=== PATIENT | female | born 1995 | race Caucasian/White ===

== ENCOUNTER 2018-12-06 23:08 | Outpatient (CLI) | payer MEDICAID, OTHER ==
[~2018-12-06] VITALS: Ht 160 cm; Wt 130.5 kg
[2018-12-06 23:21] VITALS: BP 136/81; PULSE 87; RESP 19; Ht 160 cm; Wt 130.5 kg
[2018-12-06] MEDS ORDERED: PREN-93 PO (23:46)
--- NOTE | 2018-12-07 00:41 | PN ---
Triage Information Date/Time Reason for visit: Shortness of breath and chest pain Weeks of Gestation Patient is a 23-year-old 2 para 0 at 36 weeks and 2 days of gestation w ith estimated date of delivery January 01, 2019 Patient presents with chief complaint of shortness of breath and chest pain O2 sat 98% in room air She reports positive movement, denies vaginal bleeding or leaking fluid She has occasional uterine contractions /Para 2 para 0 Diabetes: none Hypertention: none Objective Heart Rate: 140's Heart Rate Comments heart rate tracing category 1 Contractions: >10 Minutes Apart Exam Cervix fingertip/thick /high per nurse Results/Medications Imaging Results PROCEDURE: ULTRASOUND BIOPHYSICAL PROFILE CLINICAL INDICATION: 23-year-old female with decreased movement for viability. TECHNIQUE: Multiple sonographic images were obtained in order to perform a biophysical profile The images were reviewed on a PACS workstation. COMPARISON: Ultrasound biophysical profile October 03, 2018. FINDINGS: There is a single viable intrauterine gestation. There is a vertex presentation. Cardiac activity is present at 132 beats per minute. The placenta is fundal grade II. The results of the biophysical profile are as follows: breathing movement = 2/2 Gross body movement = 2/2 tone = 2/2 Qualitative amniotic fluid volume = 2/2 Amniotic fluid index equals 9.9 cm. The maximal vertical pocket is 4.8 cm. This yields a biophysical profile score of 8/8. IMPRESSION: Biophysical profile score is 8/8. .Dave Wharton MD, MD Date Time Electronically viewed and signed by .Dave Wharton MD, on 12/07/2018 01:15 .M/ CC: LYNDON MCKEON [phone] Disposition: Patient to go back to the emergency department for the evaluation of shortness of breath and chest pain Assessment/Plan Patient was cleared from obstetrical standpoint and sent back down to the emergency department for evaluation of her shortness of breath and chest pain TRENT TOVAR MD Dec 07, 2018 00:41
--- NOTE | 2018-12-07 02:09 | TRIAGE ---
OB Triage Datetime Report Generated by CPN: 12/07/2018 02:08 Datetime: 12/07/2018 01:05 Pain Assessment Pain Scale: 8 Pain Presence: Intermittent Pain Type: Sharp; Ache Pain Location: Sternum Pain Relief Measures: Comfort Measures Pain Assessment Comments: PT DENIES ANY MORE CRAMPING PAIN IN THE ABDOMEN BUT STILL STATES SHE HAS CHEST PAIN AND SOB Datetime: 12/07/2018 01:00 Labor Evaluation Frequency: irregular Monitor Mode: External Duration (sec)2399: 40-60 Quality: Mild Resting Tone [place]: Relaxed Contraction Comments: some uterine irritability noted Heart Rate FHR Baseline Rate: 135 Monitor Mode: External US Variability: Moderate 6-25 bpm Accelerations: 15X15 Decelerations: None Category: Category I Pain Assessment Pain Scale: 8 Pain Presence: Intermittent Pain Type: Sharp; Ache Pain Location: Sternum Pain Relief Measures: Comfort Measures Pain Assessment Comments: pt denies feeling abdominal cramping anymore but states she still has ania st pain/pressure with SOB Datetime: 12/07/2018 00:35 Vaginal Exam Dilatation (cms): 0.5 Station: -4 Exam By: GRISELDA CARRILLO Membrane Status: Intact Vaginal Bleeding: None Cervix, Consistency: Moderate Cervix, Position: Midposition Presentation 'A': Unable to Assess Datetime: 12/07/2018 00:02 Time of Arrival: 12/06/2018 23:02 EGA: 36.2 Arrived By: Wheelchair Arrived From: Home Chief Complaint: CHEST PAIN/PRESSURE WITH SOB _ N/V Movement: Decreased Contractions: Occasional Rupture of Membranes: Denies Vaginal Bleeding: None Vaginal Discharge: Denies Recent Sexual Intercouse: Denies Abdominal Trauma: Not Applicable Patient Complaints: Cramping; Nausea; Shortness of Breath; Other Additional Patient Complaints: CRAMPING SINCE 1200 _ DFM Time Provider Notified: 12/07/2018 00:00 Provider Notified: HADADIAN Initial Plan: EFM, VS BPP w/NATALIE, SVE Datetime: 12/07/2018 00:00 Labor Evaluation Frequency: Occasional Monitor Mode: External Duration (sec)2399: 40-60 Quality: Mild Resting Tone [place]: Relaxed Contraction Comments: some uterine irritability noted Heart Rate FHR Baseline Rate: 135 Monitor Mode: External US Variability: Moderate 6-25 bpm Accelerations: 15X15 Decelerations: None Category: Category I Datetime: 12/06/2018 23:21 Stage of : OB Triage Assessment Type: Triage Maternal Assessment Level of Consciousness: Fully Conscious DTR's/Clonus: DTRs 2+; No Clonus Headache: Denies Blurred Vision: No Respiratory Effort: Unlabored; Regular Rhythm; Equal Expansion Breath Sounds, Left: Clear and Equal Breath Sounds, Right: Clear and Equal Nausea/Vomiting: Present (Annotations: PT STATES SHE HAS SOME NAUSEA SINCE THE CHEST PAIN STARTED) RUQ Epigastric Pain: Denies Lower Extremities Edema: None Degree: None Upper Extremities Edema: None Degree: None Facial Edema: None Temperature Route: Oral Fall Risk Assessment History of Falling: (0) No Secondary Diagnosis: (0) No Ambulatory Aid: (0) Bedrest/Nurse Assist IV Therapy: (0) No Gait: (0) Normal/Bedrest/Immobile Mental Status: (0) Oriented to Own Ability Fall Score: 0 Fall Risk Score Definition: No Risk: No action required Pain Assessment Pain Scale: 8 Pain Presence: Intermittent Pain Type: Cramping; Sharp; Pressure Pain Location: Abdomen; Sternum; Right Chest; Left Chest Pain Relief Measures: Comfort Measures Datetime: 12/06/2018 23:20 Monitor Mode: External US Comments: MONITORS APPLIED, FHT AUDIBLE AT 140BPM Datetime: 12/06/2018 23:13 Stage of : OB Triage Comments: MONITOR ON PT IN LR 5 Datetime: 10/03/2018 17:00 EGA: 27.1 Fall Score: 0 Fall Risk Score Definition: No Risk: No action required
[2018-12-07] MEDS ORDERED: FAMO-96 PO (04:44)
== END 2018-12-07 01:39 | disposition home or self-care (01) ==
LOC: OBT 23:08 → L-D 23:13 → OBT 12-07 01:39
PROVIDERS: ATTEND Obstetrics & Gynecology
DX: O26.893 Other specified pregnancy related conditions, third trimester (principal); R06.02 Shortness of breath; R07.9 Chest pain, unspecified; O62.9 Abnormality of forces of labor, unspecified; Z3A.36 36 weeks gestation of pregnancy
CPT/HCPCS: 76818; Z7500; G0463

== ENCOUNTER 2018-12-07 01:47 | Emergency (ER) | payer OTHER ==
[~2018-12-07] VITALS: Ht 160 cm; Wt 138.0 kg
[~2018-12-07 01:47] MED LIST: PREN-93 PO
[2018-12-07 01:50] VITALS: Ht 160 cm; Wt 138.0 kg
[2018-12-07] MEDS ORDERED: FAMO-96 PO (04:44)
--- NOTE | 2018-12-07 04:46 | ERD ---
ER Documentation Chief Complaint Chief Complaint SOB WITH CHEST WALL PAIN, SORE THROAT HPI 24-year-old female in her 36-week of presents with complaint of burning sensation in the chest as well as the neck. States that just started today when she was lying down. Currently states there is no burning or chest pain. Denies any shortness of breath, cough, wheezing, hemoptysis, leg edema, leg erythema, leg pain. ROS All systems reviewed and are negative except as per history of present illness. Medications Home Meds Active Scripts Famotidine* (Pepcid*) 20 Mg Tablet, 20 MG PO BID for GERD for 10 Days, TAB Prov:SUNNY MCCLAIN 12/07/18 Reported Medications Vit No.124/Iron/FA ( Vitamin Tablet) 1 Each Tablet, 1 EACH PO, TAB 12/06/18 Allergies Allergies: Coded Allergies: No Known Allergies (Verified Allergy, Mild, 12/06/18) PMhx/Soc Medical and Surgical Hx: pt denies Medical Hx, pt denies Surgical Hx History of Surgery: No Anesthesia Reaction: No Hx Neurological Disorder: No Hx Respiratory Disorders: No Hx Cardiac Disorders: No Hx Psychiatric Problems: No Hx Miscellaneous Medical Probl: No Hx Alcohol Use: No Hx Substance Use: No Hx Tobacco Use: No Smoking Status: Never smoker FmHx Family History: No diabetes, No coronary disease, No other Physical Exam Vitals Vital Signs Date Temp Pulse Resp B/P (MAP) Pulse Ox O2 O2 Flow FiO2 Time Delivery Rate 12/07/18 98.3 88 17 124/77 97 01:50 (93) Physical Exam Const: No acute distress Head: Atraumatic Eyes: Normal Conjunctiva ENT: Normal External Ears, Nose and Mouth. Neck: Full range of motion. No meningismus. Resp: Clear to auscultation bilaterally Cardio: Regular rate and rhythm, no murmurs Abd: Soft, non tender, non distended. Normal bowel sounds Skin: No petechiae or rashes Back: No midline or flank tenderness Ext: No cyanosis, or edema Neur: Awake and alert Psych: Normal Mood and Affect Procedures/MDM EKG: Rate/Rhythm: Normal Sinus Rhythm QRS, ST, T-waves: No changes consistent w/ acute ischemia Impression: No evidence of ischemia or arrhythmia Patient was cleared by labor and delivery before coming here. EKG was within normal limits. Patient's presentation is consistent with GERD. Patient placed on Pepcid and told that if it does not resolve her symptoms to to return to ER immediately. I have low suspicition for acute coronary syndrome, pulmonary embolism, aortic dissection, AAA, pneumothorax, esophageal rupture, pericarditis, myocarditis, or pneumonia based on EKG, imaging, labs, patient history and exam. Patient discharged with strict ER precautions. Patient advised to follow up with PMD. All questions answered at discharge. Departure Diagnosis: Primary Impression: GERD (gastroesophageal reflux disease) Esophagitis presence: without esophagitis Qualified Codes: K21.9 - Gastro- esophageal reflux disease without esophagitis Condition: Stable Patient Instructions: What Is GERD?, Lifestyle Changes for Controlling GERD, Gerd (Adult) Referrals: [facility] YOU HAVE RECEIVED A MEDICAL SCREENING EXAM AND THE RESULTS INDICATE THAT YOU DO NOT HAVE A CONDITION THAT REQUIRES URGENT TREATMENT IN THE EMERGENCY DEPARTMENT. FURTHER EVALUATION AND TREATMENT OF YOUR CONDITION CAN WAIT UNTIL YOU ARE SEEN IN YOUR DOCTORS OFFICE WITHIN THE NEXT 1-2 DAYS. IT IS YOUR RESPONSIBILITY TO MAKE AN APPOINTMENT FOR FOLOW-UP CARE. IF YOU HAVE A PRIMARY DOCTOR --you should call your primary doctor and schedule an appointment IF YOU DO NOT HAVE A PRIMARY DOCTOR YOU CAN CALL OUR PHYSICIAN REFERRAL HOTLINE AT IF YOU CAN NOT AFFORD TO SEE A PHYSICIAN YOU CAN CHOSE FROM THE FOLLOWING [facility] CLINICS [facility] [address] [facility]. [facility] [address] [facility] [facility] [address] [facility] [facility] [address] [facility]. [facility] [address] [facility]. [facility]. [address] Additional Instructions: FOLLOW UP WITH YOUR PRIMARY CARE PHYSICIAN TOMORROW.Return to this facility if you are not improving as expected. SUNNY MCCLAIN Dec 07, 2018 04:46
[2018-12-07 05:11] VITALS: BP 116/67; PULSE 93; RESP 18
== END 2018-12-07 05:13 | disposition home or self-care (01) ==
LOC: FTE 01:47
DX: O99.613 Diseases of the digestive system complicating pregnancy, third trimester (principal); K21.9 Gastro-esophageal reflux disease without esophagitis; Z3A.36 36 weeks gestation of pregnancy
CPT/HCPCS: 93005; Z7502

== ENCOUNTER 2018-12-26 10:23 | Outpatient (CLI) | payer OTHER ==
[~2018-12-26] VITALS: Ht 160 cm; Wt 131.4 kg
[~2018-12-26 10:23] MED LIST changes: +FAMO-96 PO
[2018-12-26 10:36] VITALS: BP 110/57; PULSE 80; RESP 20
[2018-12-26 10:37] VITALS: Ht 160 cm; Wt 131.4 kg
--- NOTE | 2018-12-26 13:01 | TRIAGE ---
OB Triage Datetime Report Generated by CPN: 12/26/2018 13:01 Datetime: 12/26/2018 11:37 Labor Evaluation Frequency: OCCASIONAL Monitor Mode: External Duration (sec)2399: 30-50 Quality: Mild Pattern: Normal: <= 5 Contractions in 10 Minutes Resting Tone [place]: Relaxed Contraction Comments: PT DENIES FEELING UCS Heart Rate FHR Baseline Rate: 130 Monitor Mode: External US Variability: Moderate 6-25 bpm Accelerations: 15X15 Decelerations: None Category: Category I Datetime: 12/26/2018 11:00 Comments: REAPPLIED AFTER U/S Datetime: 12/26/2018 10:47 Time of Arrival: 12/26/2018 10:05 EGA: 39.1 Arrived By: Ambulatory Arrived From: Home Chief Complaint: came in with orders from md for bpp/efw/nst Movement: Present Contractions: Denies/Absent Rupture of Membranes: Denies Vaginal Bleeding: None Vaginal Discharge: Denies Recent Sexual Intercouse: Denies Abdominal Trauma: Not Applicable Patient Complaints: None Time Provider Notified: 12/26/2018 11:36 Provider Notified: HADADIAN Initial Plan: nst Datetime: 12/26/2018 10:43 Comments: u/s tech at bedside Datetime: 12/07/2018 00:02 EGA: 36.2 Datetime: 12/06/2018 23:21 Fall Risk Assessment Fall Score: 0 Fall Risk Score Definition: No Risk: No action required Datetime: 10/03/2018 17:00 EGA: 27.1 Fall Risk Assessment Fall Score: 0 Fall Risk Score Definition: No Risk: No action required
--- NOTE | 2018-12-26 14:52 | PN ---
Triage Information Date/Time December 26, 2018 Reason for visit: Patient here today for testing including NST/BPP requested by primary OB Weeks of Gestation 39 weeks and 1 day /Para 2 para 0 Diabetes: none Hypertention: none Additional information 23-year-old G2, P0 with IUP at 39 weeks and 1 day with morbid obesity was sent by her primary OB to triage for testing including NST/BPP. She was planned for induction at 40 weeks. She denies any complication during course. Denies any diabetes or hypertension. She denies any leaking of fluid, vaginal bleeding or decreased movement. Patient has been scheduled for another testing in 3 days. Objective Vital Signs Date Temp Pulse Resp B/P (MAP) Pulse Ox O2 O2 Flow FiO2 Time Delivery Rate 12/26/18 98.1 80 20 110/57 Room Air 10:36 (74) Heart Rate: 130's Heart Rate Comments Category 1 Contractions: None Exam General appearance: Alert and oriented x4 gentleman appears to be in any acute distress. Obese Abdomen: Soft, gravid, fundal height appears to be correlated with gestational age NST: Category 1 BPP: 04/01 NATALIE: 10.63 Results/Medications Imaging Results AMENDMENT: 12/26/2018 2:27:31 PM Aldo Valdes M.d Impression corrected as follows: IMPRESSION: 1. Single live intrauterine gestation measuring 39 weeks 1 day. 2. Estimated weight = 3675 grams (GP = 68.7% based on LMP age). PROCEDURE: US OB. CLINICAL INDICATION: TECHNIQUE: Multiple sonographic images of the pelvis were obtained. The images were reviewed on a PACS workstation. COMPARISON: US PELVIS 12/07/2018; US 10/03/2018 FINDINGS: There is a single live intrauterine gestation. Cardiac activity is present with 152 beats per minute. Cephalic presentation. Measurements were made in order to determine age. The results are as follows: BPD = 9.56 cm 39 weeks 0 days HC = 34.09 cm 39 weeks 0 days AC = 35.21 cm 39 weeks 1 day FL = 7.60 cm 38 weeks 0 days Estimated gestational age of approximately 39 weeks 1 day. The estimated date of delivery is 01/01/2019. Estimated weight = 3675 grams (8 lbs 2 oz). No anatomic abnormalities demonstrated. The placenta is fundal. There is no evidence for an abruption or placenta previa. IMPRESSION: Single live intrauterine gestation measuring 39 weeks 1 day. Estimated weight = 3675 grams. Disposition: Discharge Assessment/Plan IUP at 39 weeks and 1 day morbid obesity testing reassuring Patient denies any complaint No evidence of labor problem Stable for discharge Strict labor precautions kick counts and follow-up with duration 3 days for repeat testing discussed with the patient Patient has been scheduled for induction at 40 weeks as well as NST in 3 days in triage. Patient verbalized understanding. All questions were answered to patient's with satisfaction. Recommend the patient as well contact her OB clinic within 48 hours after discharge from the hospital for any change in the plan of care. CRISTY HOOK MD December 26, 2018 14:51
== END 2018-12-26 13:05 | disposition home or self-care (01) ==
LOC: L-D 10:23 → OBT 10:23
PROVIDERS: ATTEND Obstetrics & Gynecology
DX: O28.9 Unspecified abnormal findings on antenatal screening of mother (principal); O99.213 Obesity complicating pregnancy, third trimester; E66.01 Morbid (severe) obesity due to excess calories; Z3A.39 39 weeks gestation of pregnancy
CPT/HCPCS: 76815; 76818; Z7500; G0463

== ENCOUNTER 2018-12-28 10:51 | Inpatient (IN) | payer OTHER ==
[~2018-12-28] VITALS: Ht 160 cm; Wt 132.8 kg
[~2018-12-28 10:51] MED LIST changes: -FAMO-96 PO
[2018-12-28 11:12] VITALS: BP 116/55; PULSE 81; Ht 160 cm; Wt 132.8 kg
[2018-12-28] MEDS ORDERED: OXYTOCIN 30 UNITS/LR 500 ML IV SCH (14:00)
[2018-12-28] MEDS ORDERED: METHYLERGONOVINE 0.2 MG INJ IM PRN (14:00)
[2018-12-28] MEDS ORDERED: MISOPROSTOL 200 MCG TAB PR PRN (14:00)
[2018-12-28] MEDS ORDERED: OXYTOCIN 30 UNITS/LR 500 ML IV PRN (14:00)
[2018-12-28] MEDS ORDERED: CARBOPROST 250 MCG INJ IM PRN (14:00)
[2018-12-28] MEDS ORDERED: BUTORPHANOL 2 MG INJ IV PRN (14:00)
[2018-12-28] MEDS: LACTATED RINGER'S 1,000 ML IV SCH ×2 (16:36→20:42)
[2018-12-28] MEDS ORDERED: MISOPROSTOL 50 MCG CAPSULE PO PRN (17:30)
--- NOTE | 2018-12-28 19:49 | HP ---
Date/Time of Note Date/Time of Note DATE: 12/28/18 TIME: 19:43 OB - History Hx of Present Free Text/Dictation 23 years old 2 para 0-0-1-0 with single intrauterine at 39 weeks with a TALI of 01/04/2019 referred to triage for further evaluation due to elevated blood pressure. She states good movement. She denies nausea, vomiting, shortness of breath, chest pain, headache, visual changes, vaginal bleeding or LOF. Chief Complaint: Elevated blood pressure Estimated Due Date: January 04, 2019 : 2 Para: 0 Spontaneous : 1 Therapeutic : 0 Care: Good Care Ultrasounds: Normal mid trimester US Obstetrical Complications: None Medical Complications: None Past Family/Social History * Past Medical, Surgical, Family and Obstetric Histories reviewed from chart. Blood Type: A+ Rubella: immune RPR/VDRL: Negative GBS Status: Negative HBsAG: Negative OB Admission Exam Vital Signs Vital Signs Vital Signs Date Temp Pulse Resp B/P (MAP) Pulse Ox O2 O2 Flow FiO2 Time Delivery Rate 12/28/18 98.1 81 116/55 11:12 (75) Physical Exam HEENT: WNL Heart: Rhythm Normal Lungs: Clear Abdomen: WNL Extremities: Normal Reflexes: Normal Cervical Dilatation: Fingertip Effacement: 0% Station: -3 Membranes: Intact Heart Rate: 140's Accelerations: Accelerations Present Decelerations: No Decelerations Varibility: Moderate Contractions on Admission: None Last 72 hours Lab Results CBC & BMP 12/28/18 12:28 Liver Function Test 12/28/18 12:28 Alanine Aminotransferase (ALT/SGPT) 17 Albumin 3.2 L Alkaline Phosphatase 163 H Aspartate Amino Transf (AST/SGOT) 23 Direct Bilirubin 0.00 Total Protein 6.3 OB Assessment/Plan Other plan: 23 years old 2 para 0-0-1-0 with single intrauterine at 39 weeks with gestational hypertension admitted for induction of labor - FHR: No sign of metabolic acidosis- Category I - Continuous EFM, toco - CBC, blood type and screen, CMP, U/A - ultrasound performed, NATALIE 8.1, biophysical profile 8 out of 8. EFW 3675 gram - Cytotec per protocol for induction of labor, then Pitocin if needed - Analgesia options with R/B/A discussed in detail with patient - Epidural per patient request - Please see the orders - A+/Rubella: Immune - GBS: Negative Admission, procedures, expectations, risks and possible complications have been discussed in detail with the patient. Risk of vaginal delivery including but not limited to bleeding, infection, cervical laceration, placental retention, injury to fetus, blood transfusion, blood transfusion related infection, risk of anesthesia, adhesion, cervical laceration, episiotomy/laceration, possible delivery with risk of bleeding, infection, injury to other organs (bowel, bladder, ureter, vessels, nerves), injury to fetus, blood transfusion, blood transfusion related infection, risk of anesthesia, scar and hernia formation, needs for future , removal of uterus or any other indicated surgery discussed with the patient. She expressed understanding and repeats the risks. All of her questions were answered. She signed the informed consent. PHYSICIAN'S VERIFICATION OF INFORMED CONSENT The patient was counseled regarding the procedure, its indications, risks, potential complications and alternatives and any questions were answered. Consent was obtained. PLANNED PROCEDURE/TREATMENT: Vaginal delivery, episiotomy, repair of laceration possible delivery LYNDON MCKEON December 28, 2018 19:49
[2018-12-29] MEDS: LACTATED RINGER'S 1,000 ML IV SCH ×4 (04:49→23:09)
[2018-12-29] MEDS: OXYTOCIN 30 UNITS/LR 500 ML IV SCH (06:23)
[2018-12-30] MEDS: LACTATED RINGER'S 1,000 ML IV SCH ×5 (04:16→22:40)
--- NOTE | 2018-12-30 12:40 | PREAC ---
Date/Time of Note Date/Time of Note DATE: 12/30/18 TIME: 12:39 Anesthesia Eval and Record Evaluation Time Pre-Procedure Interview DATE: 12/30/18 TIME: 12:39 Age 23 Sex female NPO: 8 hrs Preoperative diagnosis Planned procedure labor epidural Past Medical History Past Medical History: Includes GI: Morbid obesity Surgery & Anesthesia Issues No known issue Meds Anticoagulation: No Beta Jewels within 24 hr: No Reason Beta Jewels not given: Pt. not on B-Jewels Reported Medications Vit No.124/Iron/FA ( Vitamin Tablet) 1 Each Tablet, 1 EACH PO, TAB 12/06/18 Discontinued Scripts Famotidine* (Pepcid*) 20 Mg Tablet, 20 MG PO BID for GERD for 10 Days, TAB Prov:SUNNY MCCLAIN 12/07/18 Current Medications Lactated Ringer's 1,000 ml @ 125 mls/hr Q8H IV Last administered on 12/30/18at 11:21; Admin Dose 125 MLS/HR; Start 12/28/18 at 13:40 Butorphanol Tartrate (Stadol) 1 mg Q2H PRN IV .PAIN SCALE 1-5; Start 12/28/18 at 14:00 Butorphanol Tartrate (Stadol) 2 mg Q2H PRN IV .PAIN SCALE 6-10; Start 12/28/18 at 14:00 Lidocaine (Xylocaine 1% (Mpf)) 30 ml ONCE PRN INJ .EPISIOTOMY; Start 12/28/18 at 14:00 Oxytocin/Lactated Ringer's 500 ml @ 500 mls/hr ONCE POST IV ; Start 12/28/18 at 14:00 Oxytocin/Lactated Ringer's 500 ml @ 125 mls/hr POST IV ; Start 12/28/18 at 14:00 Oxytocin/Lactated Ringer's 500 ml @ 0 mls/hr ONCE PRN IV .VAGINAL BLEEDING; Sta rt 12/28/18 at 14:00 Methylergonovine Maleate (Methergine) 0.2 mg ONCE PRN IM .VAGINAL BLEEDING; Start 12/28/18 at 14:00 Carboprost Tromethamine (Hemabate) 250 mcg ONCE PRN IM .VAGINAL BLEEDING; Start 12/28/18 at 14:00 Misoprostol (Cytotec) 1,000 mcg ONCE PRN DC .VAGINAL BLEEDING; Start 12/28/18 at 14:00 Misoprostol (Cytotec 50 Mcg Capsule) 50 mcg Q4H PRN PO CERVICAL RIPENING Last administered on 12/28/18at 17:46; Admin Dose 50 MCG; Start 12/28/18 at 17:30 Oxytocin/Lactated Ringer's 500 ml @ 0 mls/hr FOR INDUCTION IV Last administered on 12/29/18at 06:23; Admin Dose 1 MLS/HR; Start 12/29/18 at 06:30 Meds reviewed: Yes Allergies Coded Allergies: No Known Allergies (Verified Allergy, Mild, 12/26/18) Allergies Reviewed: Yes Labs/Studies Labs Reviewed: Reviewed by anesthesiologist Result Diagram: 12/28/18 1228 12/28/18 1228 test: Positive Pre-procedure Exam Last vitals Vital Signs Date Temp Pulse Resp B/P (MAP) Pulse Ox O2 O2 Flow FiO2 Time Delivery Rate 12/28/18 98.1 81 116/55 11:12 (75) Airway: Adequate mouth opening, Adequate thyromental dist Mallampati: Mallampati II Teeth: Normal Lung: Normal Heart: Normal ASA Physical Status ASA physical status: 2 Emergency: None Planned Anesthetic Neuraxial: Epidural Pre-operative Attestations Prior to commencing anesthesia and surgery, the patient was re-evaluated, there was verification of: *The patient's identity *The results of appropriate recent lab work and preoperative vital signs *The above evaluation not changing prior to induction *Anesthetic plan, risk benefits, alternative and complications discussed with patient/family; questions answered; patient/family understands, accepts and wishes to proceed. ANIVAL HAWLEY December 30, 2018 12:40
[2018-12-30] MEDS ORDERED: NALOXONE (0.4 MG/ML) INJ IV PRN (13:00)
[2018-12-30] MEDS ORDERED: KETOROLAC 30 MG INJ IV PRN (13:00)
[2018-12-30] MEDS ORDERED: DIPHENHYDRAMINE 50 MG INJ IV PRN (13:00)
[2018-12-30] MEDS ORDERED: FENTAnyl 2MCG/ML-ROPIV 0.2% 100 ML BAG EPI SCH (13:00)
[2018-12-30] MEDS ORDERED: HYDROmorphONE 0.5 MG/0.5 ML SYG IV PRN ×2 (13:00)
[2018-12-30] MEDS ORDERED: LIDOCAINE 1.5%/EPI MPF (SDV) 30 ML VIAL ONE (13:17)
--- NOTE | 2018-12-30 15:05 | QN ---
Documentation Comment Late entry note. Patient seen on 12/29/2018 23 years old 2 para 0-0-1-0 with gestational hypertension at 39 weeks and 1 day admitted for induction of labor. She is currently doing well. She states good movement. She denies nausea, vomiting, shortness of breath, chest pain, headache, visual changes, vaginal bleeding or LOF. heart rate is category 1. She has irregular uterine contractions. She received Cytotec x3. Continue current management. LYNDON MCKEON December 30, 2018 15:05
--- NOTE | 2018-12-30 15:09 | PN ---
Date/Time of Note Date/Time of Note DATE: 12/30/18 TIME: 15:05 OB Subjective Subjective Subjective Patient seen and examined. She states good movement. She denies nausea, vomiting, shortness of breath, chest pain, abdominal pain between contractions, headache, visual changes, vaginal bleeding or LOF. OB Objective Objective Objective General: Patient appears well, alert and oriented, NAD, appropriate mood and affect ABD: gravid, soft, non-tender. Back: No CVA tenderness (B/L) LE: Mild edema. No clubbing, cyanosis, edema, thigh or calf tenderness bilaterally FHT: 135 bpm , moderate variability with acceleration, no deceleration-category I Contractions: Hard to track contraction due to body habitus SVE: 3/50/-3/ceph/intact membrane. OB Assessment/Plan Other plan: 23 year-old G 1 with gestational hypertension at 39 weeks and 2 days - FHR: Reassuring. No sign of metabolic acidosis- Category I - Continuous EFM, toco. - She is currently on oxytocin, increase 2 mu/min every 30 min via infusion pump - AROM performed without any complication/ clear. - IUPC and FSE placed. Patient tolerated the procedure well. * LYNDON MCKEON December 30, 2018 15:09
[2018-12-30] MEDS: BUTORPHANOL 2 MG INJ IV PRN (15:50)
--- NOTE | 2018-12-30 19:44 | PAC ---
Date/Time of Note Date/Time of Note DATE: 12/30/18 TIME: 19:44 Post-Anesthesia Notes Post-Anesthesia Note Last documented vital signs Vital Signs Date Temp Pulse Resp B/P (MAP) Pulse Ox O2 O2 Flow FiO2 Time Delivery Rate 12/28/18 98.1 81 116/55 11:12 (75) Activity: WNL Respiratory function: WNL Cardiovascular function: WNL Mental status: Baseline Pain reasonably controlled: Yes Hydration appropriate: Yes Nausea/Vomiting absent: Yes ANIVAL HAWLEY December 30, 2018 19:44
[2018-12-30] MEDS: ONDANSETRON 4 MG INJ IV PRN (21:08)
[2018-12-30] MEDS ORDERED: AMPICILLIN 2 GM/NS (PMX) 100 ML IV ONE (23:30)
[2018-12-31] MEDS: BUTORPHANOL 2 MG INJ IV PRN (01:42)
[2018-12-31] MEDS: AMPICILLIN 1 GM/NS (PMX) 50 ML IV SCH ×5 (03:25→20:12)
[2018-12-31] MEDS: ONDANSETRON 4 MG INJ IV PRN (05:13)
[2018-12-31] MEDS: LACTATED RINGER'S 1,000 ML IV SCH ×2 (06:05→08:30)
--- NOTE | 2018-12-31 07:31 | PREAC ---
Date/Time of Note Date/Time of Note DATE: 12/31/18 TIME: 07:30 Anesthesia Eval and Record Evaluation Time Pre-Procedure Interview DATE: 12/31/18 TIME: 07:30 Age 23 Sex female NPO: 8 hrs Preoperative diagnosis intrauterine Planned procedure labor epidural (previous not working and removed already) Past Medical History Past Medical History: Includes GI: Morbid obesity Surgery & Anesthesia Issues No known issue Meds Anticoagulation: No Beta Jewels within 24 hr: No Reason Beta Jewels not given: Pt. not on B-Jewels Reported Medications Vit No.124/Iron/FA ( Vitamin Tablet) 1 Each Tablet, 1 EACH PO, TAB 12/06/18 Discontinued Scripts Famotidine* (Pepcid*) 20 Mg Tablet, 20 MG PO BID for GERD for 10 Days, TAB Prov:SUNNY MCCLAIN 12/07/18 Current Medications Lactated Ringer's 1,000 ml @ 125 mls/hr Q8H IV Last administered on 12/31/18at 06:05; Admin Dose 125 MLS/HR; Start 12/28/18 at 13:40 Butorphanol Tartrate (Stadol) 1 mg Q2H PRN IV .PAIN SCALE 1-5; Start 12/28/18 at 14:00 Butorphanol Tartrate (Stadol) 2 mg Q2H PRN IV .PAIN SCALE 6-10 Last administer ed on 12/31/18at 01:42; Admin Dose 2 MG; Start 12/28/18 at 14:00 Lidocaine (Xylocaine 1% (Mpf)) 30 ml ONCE PRN INJ .EPISIOTOMY; Start 12/28/18 at 14:00 Oxytocin/Lactated Ringer's 500 ml @ 500 mls/hr ONCE POST IV ; Start 12/28/18 at 14:00 Oxytocin/Lactated Ringer's 500 ml @ 125 mls/hr POST IV ; Start 12/28/18 at 14:00 Oxytocin/Lactated Ringer's 500 ml @ 0 mls/hr ONCE PRN IV .VAGINAL BLEEDING; Start 12/28/18 at 14:00 Methylergonovine Maleate (Methergine) 0.2 mg ONCE PRN IM .VAGINAL BLEEDING; Start 12/28/18 at 14:00 Carboprost Tromethamine (Hemabate) 250 mcg ONCE PRN IM .VAGINAL BLEEDING; Start 12/28/18 at 14:00 Misoprostol (Cytotec) 1,000 mcg ONCE PRN ID .VAGINAL BLEEDING; Start 12/28/18 at 14:00 Misoprostol (Cytotec 50 Mcg Capsule) 50 mcg Q4H PRN PO CERVICAL RIPENING Last administered on 12/28/18at 17:46; Admin Dose 50 MCG; Start 12/28/18 at 17:30 Oxytocin/Lactated Ringer's 500 ml @ 0 mls/hr FOR INDUCTION IV Last administered on 12/29/18at 06:23; Admin Dose 1 MLS/HR; Start 12/29/18 at 06:30 Naloxone HCl (Narcan) 0.1 mg Q2M PRN IV .RESP RATE; Start 12/30/18 at 13:00; Stop 12/31/18 at 12:59 Ketorolac Tromethamine (Toradol) 30 mg Q6H PRN IV PAIN AFTER CSECTION; Start 12/30/18 at 13:00; Stop 12/31/18 at 12:59 Hydromorphone HCl (Dilaudid) 0.2 mg Q3H PRN IV .PAIN 1-5; Start 12/30/18 at 13:00; Stop 12/31/18 at 12:59 Hydromorphone HCl (Dilaudid) 0.4 mg Q3H PRN IV .PAIN 6-10; Start 12/30/18 at 13:00; Stop 12/31/18 at 12:59 Diphenhydramine HCl (Benadryl) 25 mg Q6H PRN IV .ITCHING; Start 12/30/18 at 13:00; Stop 12/31/18 at 12:59 Ondansetron HCl (Zofran Inj) 4 mg Q6H PRN IV .NAUSEA/VOMITING Last administered on 12/31/18at 05:13; Admin Dose 4 MG; Start 12/30/18 at 13:00; Stop 12/31/18 at 12: 59 Fentanyl/ Ropivacaine 100 ml EPIDURAL INFUSION EPI ; Start 12/30/18 at 13:00 Ampicillin 50 ml @ 100 mls/hr Q4H IV Last administered on 12/31/18at 03:25; Admin Dose 100 MLS/HR; Start 12/31/18 at 03:30 Meds reviewed: Yes Allergies Coded Allergies: No Known Allergies (Verified Allergy, Mild, 5/4/19) Allergies Reviewed: Yes Labs/Studies Labs Reviewed: Reviewed by anesthesiologist Result Diagram: 12/28/18 1228 12/28/18 1228 test: N/A Pre-procedure Exam Last vitals Vital Signs Date Temp Pulse Resp B/P (MAP) Pulse Ox O2 O2 Flow FiO2 Time Delivery Rate 12/28/18 98.1 81 116/55 11:12 (75) Airway: Adequate mouth opening, Adequate thyromental dist Mallampati: Mallampati II Teeth: Normal Lung: Normal Heart: Normal ASA Physical Status ASA physical status: 3 Emergency: None Planned Anesthetic Neuraxial: Epidural Planned Pain Management Epidural Pre-operative Attestations Prior to commencing anesthesia and surgery, the patient was re-evaluated, there was verification of: *The patient's identity *The results of appropriate recent lab work and preoperative vital signs *The above evaluation not changing prior to induction *Anesthetic plan, risk benefits, alternative and complications discussed with patient/family; questions answered; patient/family understands, accepts and wishes to proceed. RADHA CHAUDHARY MD December 31, 2018 07:31
[2018-12-31] MEDS ORDERED: NALOXONE (0.4 MG/ML) INJ IV PRN (08:00)
[2018-12-31] MEDS ORDERED: DIPHENHYDRAMINE 50 MG INJ IV PRN (08:00)
[2018-12-31] MEDS ORDERED: ONDANSETRON 4 MG INJ IV PRN (08:00)
[2018-12-31] MEDS ORDERED: ROPIVACAINE 0.2% 100ML BAG EPI SCH (08:00)
--- NOTE | 2018-12-31 08:32 | PAC ---
Date/Time of Note Date/Time of Note DATE: 12/31/18 TIME: 08:31 Post-Anesthesia Notes Post-Anesthesia Note Last documented vital signs Vital Signs Date Temp Pulse Resp B/P (MAP) Pulse Ox O2 O2 Flow FiO2 Time Delivery Rate 12/28/18 98.1 81 116/55 11:12 (75) Activity: WNL Respiratory function: WNL Cardiovascular function: WNL Mental status: Baseline Pain reasonably controlled: Yes Hydration appropriate: Yes Nausea/Vomiting absent: Yes Comments BP: 132/72 HR: 99 RR: 15 T: 98 SaO2: 96% RADHA CHAUDHARY MD December 31, 2018 08:32
[2018-12-31] MEDS ORDERED: DEXTROSE 5%-LR 1,000 ML IV SCH (09:22)
[2018-12-31] MEDS: OXYTOCIN 30 UNITS/LR 500 ML IV SCH (10:06)
[2018-12-31] MEDS ORDERED: LACTATED RINGER'S 1,000 ML IV SCH (13:13)
[2018-12-31] MEDS: FENTAnyl 2MCG/ML-ROPIV 0.2% 100 ML BAG EPI SCH ×2 (15:14→20:13)
[2019-01-01] MEDS: AMPICILLIN 1 GM/NS (PMX) 50 ML IV SCH (00:06)
[2019-01-01] MEDS ORDERED: MINERAL OIL LIGHT 10 ML VIAL TOP ONE (00:30)
[2019-01-01] MEDS: FENTAnyl 2MCG/ML-ROPIV 0.2% 100 ML BAG EPI SCH (01:59)
[2019-01-01] MEDS: LIDOCAINE 1% (MPF) 30 ML INJ INJ PRN ×2 (03:12→03:18)
[2019-01-01] MEDS: OXYTOCIN 30 UNITS/LR 500 ML IV SCH ×2 (03:18→05:00)
--- NOTE | 2019-01-01 03:56 | LDN ---
Date/Time of Note Date/Time of Note DATE: 01/01/19 TIME: 03:52 Delivery Summary of normal female Weeks of Gestation 39w6d Placenta Delivered: Spontaneously, Intact & Complete Meconium: Thick (old mec membrane is all stained with mec) Episiotomy: Yes Indication for episiotomy expected big laceration Perineal laceration: 0 Laceration repair: 00ch gut Anesthesia type: Epidural Estimated blood loss: 400 Sponge & Needle done & correct: Yes All needle counts correct: Yes Any foreign bodies felt in the: No Delivery Information Sex Infant Sex: female Apgars 1 Minute: 8 5 Minute: 9 10 Minute: 0 Suctioning Nose & mouth suctioned at naomi: Yes Delee suction performed: Yes Umbilical Cord Umbilical cord with: 3 Vessels Cord presentations: no nuchal cord Cord Blood was obtained: Yes Mother & Baby Disposition Disposition Mom & Baby to Maternity; Good: Yes Mom transferred to: Other Baby to NICU: No () HERMINIO MALLOY MD January 01, 2019 03:56
[2019-01-01] MEDS ORDERED: ZOLPIDEM 5 MG TAB PO PRN (05:00)
[2019-01-01] MEDS ORDERED: LANOLIN HPA 1 PKT TOP PRN (05:00)
[2019-01-01] MEDS ORDERED: BENZOCAINE 20% 56 ML SPRAY TOP PRN (05:00)
[2019-01-01] MEDS ORDERED: METHYLERGONOVINE 0.2 MG INJ IM PRN (05:00)
[2019-01-01] MEDS ORDERED: CARBOPROST 250 MCG INJ IM PRN (05:00)
[2019-01-01] MEDS ORDERED: OXYTOCIN 30 UNITS/LR 500 ML IV PRN (05:00)
[2019-01-01] MEDS ORDERED: WITCH HAZEL/GLYCERIN PAD PR PRN (05:00)
[2019-01-01] MEDS ORDERED: OXYCODONE/ASPIRIN (4.88/325) TAB PO PRN ×2 (05:00)
[2019-01-01] MEDS ORDERED: MISOPROSTOL 200 MCG TAB PR PRN (05:00)
[2019-01-01 05:15] VITALS: BP 147/82; PULSE 71; PULSE 90; RESP 18
[2019-01-01] MEDS: IBUPROFEN 600 MG TAB PO SCH ×3 (06:08→18:06)
[2019-01-01 06:15] VITALS: BP 135/77; PULSE 87; RESP 18
[2019-01-01 07:40] VITALS: BP 124/73; PULSE 77; RESP 18
[2019-01-01] MEDS: SENNA/DOCUSATE NA (8.6MG/50MG) TAB PO SCH ×2 (09:07→20:40)
[2019-01-01 12:05] VITALS: BP 120/68; PULSE 84; RESP 18
[2019-01-01 16:00] VITALS: BP 122/65; PULSE 79; RESP 20
[2019-01-01 20:00] VITALS: BP 118/59; PULSE 78; RESP 19
[2019-01-02] MEDS: IBUPROFEN 600 MG TAB PO SCH ×5 (00:06→23:35)
[2019-01-02 03:10] VITALS: BP 114/54; PULSE 69; RESP 20
[2019-01-02 08:15] VITALS: BP 122/57; PULSE 68; RESP 18
[2019-01-02] MEDS: SENNA/DOCUSATE NA (8.6MG/50MG) TAB PO SCH ×2 (08:52→20:50)
[2019-01-02 16:00] VITALS: BP 137/61; PULSE 69; RESP 22
[2019-01-02 19:50] VITALS: BP 105/53; PULSE 82; RESP 17
[2019-01-03 03:10] VITALS: BP 121/71; PULSE 63; RESP 20
[2019-01-03] MEDS: IBUPROFEN 600 MG TAB PO SCH ×2 (05:30→12:00)
[2019-01-03 07:30] VITALS: BP 126/73; PULSE 82; RESP 18
[2019-01-03] MEDS: SENNA/DOCUSATE NA (8.6MG/50MG) TAB PO SCH (09:00)
[2019-01-03] MEDS ORDERED: DIPHTH/TET/ACEL PERTUSS (ADULT) 0.5 ML VIAL IM* ONE (09:00)
--- NOTE | 2019-01-03 10:35 | PN ---
Date/Time of Note Date/Time of Note DATE: 01/03/19 TIME: 10:33 OB Subjective Subjective Subjective PPD# 2 Patient is doing well. She denies nausea, vomiting, shortness of breath, chest pain, headache. She has been ambulating without difficulty, tolerating regular diet. Pain is well controlled on current medications OB Objective Objective Objective Vital Signs Date Temp Pulse Resp B/P (MAP) Pulse Ox O2 O2 Flow FiO2 Time Delivery Rate 01/03/19 97.9 82 18 126/73 Room Air 07:30 (90) General: AAO X 3, comfortable, NAD, appropriate mood and affect. ABD: +BS. Soft, non-tender. Uterus 2 cm below umbilicus Flank: No CVA tenderness (B/L) LE: Mild edema. No clubbing, cyanosis, thigh or calf tenderness (B/L). Homans 'sign is negative OB Assessment/Plan Other plan: 23 years old 2 para 1-0-1-1 s/p normal vaginal delivery at 39 weeks and 3 days. PPD#2 - AF, VSS - Baby is doing well, at bed side. She is bonding well - Contraception methods with R/B/A/FR discussed - Continue care - Discharge home - Rx and instruction given - Follow up in 2 and 6 weeks at clinic LYNDON MCKEON January 03, 2019 10:35
--- NOTE | 2019-01-03 10:36 | DS ---
Date/Time of Note Date/Time of Note DATE: 01/03/19 TIME: 10:35 Obstetrical Discharge Record Final Diagnosis Final Diagnosis: Term delivered Other Final Diagnosis 23 years old 2 para 1-0-1-1 s/p normal vaginal delivery at 39 weeks and 3 days. PPD#2 - AF, VSS - Baby is doing well, at bed side. She is bonding well - Contraception methods with R/B/A/FR discussed - Continue care - Discharge home - Rx and instruction given - Follow up in 2 and 6 weeks at clinic Condition on Discharge Physical Assessment Voiding: Yes Bowel Movement: Yes Breast: Soft, non-tender Fundus: Firm Calf Tenderness: No Patient Condition: Stable LYNDON MCKEON January 03, 2019 10:36
--- NOTE | 2019-01-03 13:09 | QN ---
Documentation Comment Late entry note for 01/02/2019 day #1 Status post Patient stable and afebrile Vital signs stable VS - Last 72 Hours, by Label Date Temp Pulse Resp B/P (MAP) Pulse Ox O2 O2 Flow FiO2 Time Delivery Rate 01/03/19 97.9 82 18 126/73 Room Air 07:30 (90) 01/03/19 97.9 63 20 121/71 Room Air 03:10 (88) 01/02/19 97.8 82 17 105/53 Room Air 19:50 (70) 01/02/19 97.9 69 22 137/61 Room Air 16:00 (86) 01/02/19 97.6 68 18 122/57 Room Air 08:15 (78) 01/02/19 97.5 69 20 114/54 Room Air 03:10 (74) 01/01/19 97.8 78 19 118/59 Room Air 20:00 (78) 01/01/19 97.8 79 20 122/65 Room Air 16:00 (84) 01/01/19 97.9 84 18 120/68 Room Air 12:05 (85) 01/01/19 98.0 77 18 124/73 Room Air 07:40 (90) 01/01/19 98.3 87 18 135/77 Room Air 06:15 (96) 01/01/19 98.8 90 18 147/82 Room Air 05:15 (103) Hematology - 72 Hrs Test 01/02/19 07:36 Hematocrit 29.8 % (37.0-47.0) L Hemoglobin 9.6 g/dl (12.0-16.0) L Mean Corpuscular Hemoglobin 28.0 pg (29.0-33.0) L Mean Corpuscular Hemoglobin Concent 32.2 g/dl (32.0-37.0) Mean Corpuscular Volume 86.9 fl (82.0-101.0) Mean Platelet Volume 10.2 fl (7.4-10.4) Platelet Count 210 10^3/UL (140-415) Red Blood Count 3.43 10^6/ul (4.20-5.40) L Red Cell Distribution Width 15.5 % (11.5-14.5) H White Blood Count 12.6 10^3/ul (4.8-10.8) #H Abdomen soft, fundus firm Perineum intact Extremities nontender Assessment and plan Patient stable and doing well Continue with routine care TRENT TOVAR MD January 03, 2019 13:09
--- NOTE | 2019-01-04 14:46 | DELSUM ---
Delivery Summary A-C Datetime Report Generated by CPN: 01/04/2019 14:46 DELIVERY PERSONNEL Picture Framer: Tersigni, Samina MATERNAL INFORMATION Delivery Anesthesia: Epidural Medications in Delivery: LR with 30 units of pitocin Delivery QBL (ml): 400 Placenta Cultured: No Maternal Complications: Prolong Labor >20Hrs Other Maternal Complications: prolonged ruptured membranes LABOR SUMMARY EDC: 01/02/2019 00:00 No. Babies in Womb: 1 Attempted: No Labor Anesthesia: Epidural LABOR INFORMATION Reason for Induction: Gest. HTN/PreEclam/Eclamp Onset of Labor: 12/30/2018 11:28 Complete Dilatation: 12/31/2018 22:55 Cervical Ripening Agents: Cytotec @ Oxytocin: Induction Group B Beta Strep: Negative Antibiotics # of Doses: 7 Antibiotics Time of Last Dose: 01/01/2019 00:06 Steroids Given: None Reason Steroids Not Administered: Not Applicable MEMBRANES Membranes Rupture Method: Artificial Rupture of Membranes: 12/30/2018 11:12 Length of Rupture (hr): 39.38 Amniotic Fluid Color: Clear Amniotic Fluid Amount: Small Amniotic Fluid Odor: Normal STAGES OF LABOR Stage 1 hr: 35 Stage 1 min: 27 Stage 2 hr: 3 Stage 2 min: 40 Stage 3 hr: 0 Stage 3 min: 6 Total Time in Labor hr: 39 Total Time in Labor min: 13 VAGINAL DELIVERY Episiotomy: Right Mediolateral Laceration Extension: N/A Laceration Type: None Laceration Repair: Yes Initial Vag Sponge Count: 10+20 Final Vag Sponge Count: 30 Initial Vag Sharps Count: 1+3 Final Vag Sharps Count: 4 Sponge Count Correct: Yes; Vaginal Sweep Performed Sharps Count Correct: Yes BABY A INFORMATION Delivery Date/Time: 01/01/2019 02:35 Method of Delivery: Vaginal Born in Route : No : N/A Forceps: N/A Vacuum Extraction: N/A Shoulder Dystocia : N/A SHOULDER DYSTOCIA BABY A Delivery Date/Time: 01/01/2019 02:35 PRESENTATION/POSITION BABY A Presentation: Cephalic Cephalic Presentation: Vertex Vertex Position: Left Occipital Anterior Breech Presentation: N/A PLACENTA INFORMATION BABY A Placenta Delivery Time : 01/01/2019 02:41 Placenta Method of Delivery: Spontaneous Placenta Status: Delivered SCORES BABY A Heart Rate 1 min: >100 bpm Resp Effort 1 min: Good Cry Reflex Irritability 1 min: Cough/Sneeze/Pulls Away Muscle Tone 1 min: Active Motion Color 1 min: Blue/Pale Resuscitation Effort 1 min: Tactile Stimulation SCORE 1 MIN: 8 Heart Rate 5 min: >100 bpm Resp Effort 5 min: Good Cry Reflex Irritability 5 min: Cough/Sneeze/Pulls Away Muscle Tone 5 min: Active Motion Color 5 min: Body [place], Extremit Blue Resuscitation Effort 5 min: Tactile Stimulation SCORE 5 MIN: 9 INFORMATION BABY A Gestational Age at Delivery: 39.6 Gestational Status: Full Term- 39- 40.6 Weeks Outcome : Liveborn Condition : Stable Infant Sex: Female IDENTIFICATION/MEDS BABY A ID Band Number: [id number] ID Band Location: Right Leg; Left Arm Sensor Applied: Yes Sensor Number: [id number] Sensor Location : Cord Clamp Vitamin K Given : Not Given Erythromycin Given: Not Given WEIGHT/LENGTH BABY A Infant Birthweight (gm): 3210 Infant Weight (lb): 7 Infant Weight (oz): 1 Length (in): 20.00 Infant Length (cm): 50.80 CORD INFORMATION BABY A No. Cord Vessels: 3 Nuchal Cord : N/A Cord Blood Taken: Yes Infant Suction: Mouth; Nose ASSESSMENT BABY A Infant Complications: Decreased Variability; Meconium Physical Findings at Delivery: Caput Succedaneum; Molding of the Head; Within Normal Limits Infant Respirations: Appears Normal Direct Marketing Coordinator/ALS Called : Yes Care By: NICU team/Yolanda CARRILLO Transferred To: Remains with Mother
== END 2019-01-03 13:15 | disposition home or self-care (01) | DRG 807 ==
LOC: L-D 10:51 → OBT 10:51 → L-D 13:40 → OBT 13:40 → L-D 15:15 → PP1 01-01 05:30
PROVIDERS: ADMIT Obstetrics & Gynecology; ATTEND Obstetrics & Gynecology
PROC: 10E0XZZ Delivery of Products of Conception, External Approach (ICD-10-PCS; principal; 2019-01-01)
PROC: 0W8NXZZ Division of Female Perineum, External Approach (ICD-10-PCS; 2019-01-01)
DX: O80 Encounter for full-term uncomplicated delivery (principal); Z37.0 Single live birth; Z3A.39 39 weeks gestation of pregnancy
CPT/HCPCS: 62322; 76818; 80053; 81001; 84560; 85025; 85384; 85610; 85730; 86592; 86850; 86900; 86901; 87086; 87340; 88307; 90715; 99464; G0463; J0290; J0595; J2405; J2590; J3010; J7120; J7121